=== PATIENT | female | born 1945 ===

== ENCOUNTER 2021-03-11 09:02 | Emergency (ER) | payer OTHER, MEDICAID ==
[~2021-03-11] VITALS: Ht 162.6 cm; Wt 113.4 kg
[2021-03-11] MEDS ORDERED: ONDANSETRON HCL 4 MG/2 ML VIAL ONE (09:36)
[2021-03-11] MEDS ORDERED: ONDANSETRON HCL 4 MG/2 ML VIAL IV ONE (09:45)
[2021-03-11 10:16] LABS: Albumin 2.8 g/dL (3.4-5.0); Calcium 8.1 mg/dL (8.5-10.1); Magnesium 2.4 mg/dL (1.6-2.6); Potassium 3.5 mmol/L (3.5-5.1)
[2021-03-11 10:18] LABS: Basophils # (auto) 0.1 10 ^3/uL (0-0.2); Eosinophils # (auto) 0.3 10 ^3/uL (0-0.8); Hematocrit 33.5 % (36.0-46.0); Lymphocytes # (auto) 1.4 10 ^3/uL (0.4-5.4)
[2021-03-11 10:20] LABS: Basophils % (auto) 0.8 % (0.0-2.0); Eosinophils % (auto) 2.9 % (0.0-7.0); Hemoglobin 10.9 g/dL (12.2-16.2); Lymphocytes % (auto) 11.7 % (10.0-50.0); Mean Corpuscular Hemoglobin 24.2 pg (28.0-32.0); Mean Corpuscular Hgb Conc. 32.5 g/dL (32.0-36.0); Mean Corpuscular Volume 74.7 fL (80.0-100.0); Monocytes # (auto) 1.3 10 ^3/uL (0-1.3); Monocytes % (auto) 10.9 % (0.0-12.0); Neutrophils # (auto) 8.7 10 ^3/uL (1.6-8.6); Neutrophils % (auto) 73.7 % (37.0-80.0); Nucleated Red Blood Cells % 0.1 %; Red Blood Cells 4.48 10^6/uL (4.0-5.20); Red Cell Distribution Width 15.9 % (11.8-14.3); White Blood Cell 11.7 10^3/uL (4.4-10.8)
[2021-03-11 10:24] LABS: Bilirubin, Total 0.4 mg/dL (0.2-1.0); Total Protein 6.9 g/dL (6.4-8.2)
[2021-03-11 10:53] LABS: BUN/Creatinine Ratio 16.9
[2021-03-11] MEDS ORDERED: SODIUM CHLORIDE 0.9% 1,000 ML IV ONE (11:45)
[2021-03-11] MEDS ORDERED: SODIUM CHLORIDE 0.9% 500 ML IVB ONE (11:45)
[2021-03-11 12:52] LABS: Urine Bacteria MANY /hpf (None Seen); Urine Blood Negative /uL (Negative); Urine Specific Gravity 1.008 (1.001-1.035); Urine WBC 1 /hpf (0 - 5)
[2021-03-11] MEDS ORDERED: cefTRIAXone 1GM/50ML D5W 50 ML IV ONE (13:30)
[2021-03-11] MEDS ORDERED: metroNIDAZOLE 500MG/100ML 100 ML IV ONE (13:30)
[2021-03-11 15:00] VITALS: BP 112/49
[2021-03-11] MEDS ORDERED: LACTCAP35 PO (22:42)
[2021-03-11] MEDS ORDERED: METR500T14 PO (22:42)
[2021-03-11] MEDS ORDERED: CEFD300C2 PO (22:42)
[2021-03-14] MEDS ORDERED: ZINC220T6 PO (11:00)
[2021-03-14] MEDS ORDERED: ASCO10003 PO (11:00)
[2021-03-14] MEDS ORDERED: CHOL20007 PO (11:00)
== END 2021-03-11 15:58 | disposition home or self-care (01) ==
LOC: ER 09:02
DX: N39.0 Urinary tract infection, site not specified (principal); R53.1 Weakness; K52.1 Toxic gastroenteritis and colitis; E66.01 Morbid (severe) obesity due to excess calories; E43 Unspecified severe protein-calorie malnutrition; I10 Essential (primary) hypertension; T50.905A Adverse effect of unspecified drugs, medicaments and biological substances, initial encounter; Z68.41 Body mass index [BMI] 40.0-44.9, adult; Y92.89 Other specified places as the place of occurrence of the external cause
CPT/HCPCS: 36415; 71045; 80053; 81001; 83690; 83735; 84484; 85025; 93005; 96361; 96365; 96368; 96375; 99285; J0696; J2405; J3490; J7030; J7040

== ENCOUNTER 2021-03-12 07:35 | Inpatient (IN) | payer OTHER, MEDICAID ==
[~2021-03-12] VITALS: Ht 157.5 cm; Wt 113.0 kg
[~2021-03-12 07:35] MED LIST: CEFD300C2 PO; LACTCAP35 PO; METR500T14 PO
[2021-03-12 11:07] LABS: Albumin 2.5 g/dL (3.4-5.0); Calcium 7.9 mg/dL (8.5-10.1); Potassium 3.6 mmol/L (3.5-5.1)
[2021-03-12 11:10] LABS: Basophils # (auto) 0.1 10 ^3/uL (0-0.2); Eosinophils # (auto) 0.5 10 ^3/uL (0-0.8); Eosinophils % (auto) 4.3 % (0.0-7.0); Mean Corpuscular Hemoglobin 23.9 pg (28.0-32.0); Mean Corpuscular Volume 75.2 fL (80.0-100.0); Monocytes # (auto) 1.3 10 ^3/uL (0-1.3)
[2021-03-12 11:13] LABS: BUN/Creatinine Ratio 21.5; Bilirubin, Total 0.4 mg/dL (0.2-1.0); Total Protein 6.5 g/dL (6.4-8.2)
[2021-03-12 11:15] LABS: Basophils % (auto) 0.7 % (0.0-2.0); Hematocrit 31.7 % (36.0-46.0); Hemoglobin 10.1 g/dL (12.2-16.2); Lymphocytes % (auto) 16.1 % (10.0-50.0); Mean Corpuscular Hgb Conc. 31.7 g/dL (32.0-36.0); Monocytes % (auto) 10.8 % (0.0-12.0); Neutrophils # (auto) 8.4 10 ^3/uL (1.6-8.6); Neutrophils % (auto) 68.1 % (37.0-80.0); Nucleated Red Blood Cells % 0.1 %; Red Blood Cells 4.22 10^6/uL (4.0-5.20); White Blood Cell 12.3 10^3/uL (4.4-10.8)
[2021-03-12] MEDS ORDERED: ASPirin 81 mg TAB PO ONE (12:00)
[2021-03-12] MEDS ORDERED: NITROGLYCERIN 0.4 MG SL TAB SL PRN ×2 (13:15→17:00)
[2021-03-12] MEDS ORDERED: MORPHINE SULFATE INJECTION 2 MG/ML SYRG IV PRN ×3 (13:15→17:00)
[2021-03-12 14:39] LABS: Urine Bacteria NONE SEEN /hpf (None Seen); Urine Blood Negative /uL (Negative); Urine Hyaline Cast FEW /lpf (0 - 2); Urine Specific Gravity 1.016 (1.001-1.035); Urine WBC 9 /hpf (0 - 5)
[2021-03-12] MEDS ORDERED: METOPROLOL SUCCINATE XL 50 MG TAB PO ONE (17:00)
[2021-03-12] MEDS ORDERED: DOCUSATE SOD 100 MG CAP PO PRN (17:00)
[2021-03-12] MEDS: InsuLIN REG 1unit/0.01ml Soln (100units/ml) SC SCH ×2 (17:00→22:00)
[2021-03-12] MEDS ORDERED: HYDROcodone-ACET 5/325MG TAB PO PRN (17:00)
[2021-03-12] MEDS ORDERED: cefTRIAXone 1GM/50ML D5W 50 ML IV ONE (17:00)
[2021-03-12] MEDS ORDERED: DOXYCYCLINE 100MG/250ML 250 ML IV ONE (17:00)
[2021-03-12] MEDS ORDERED: ALUM & MAG HYDROX-SIMETH LIQ(MAALOX) 30 ML PO PRN (17:00)
[2021-03-12] MEDS ORDERED: DEXTROSE (50%) 50ML SYRG IV PRN (17:00)
[2021-03-12] MEDS ORDERED: ACETAMINOPHEN 325 MG TAB PO PRN (17:00)
[2021-03-12] MEDS ORDERED: ONDANSETRON HCL 4 MG/2 ML VIAL IV PRN (17:00)
[2021-03-12] MEDS ORDERED: LORazepam 0.5 MG TAB PO PRN (17:00)
[2021-03-12 19:08] LABS: Cholesterol 108 mg/dL (< 200)
[2021-03-12 19:10] LABS: HDL Cholesterol 24 mg/dL (40-59); LDL Cholesterol 68 mg/dL (< 100); Triglycerides 113 mg/dL (< 150)
[2021-03-12 20:54] LABS: Cholesterol 119 mg/dL (< 200)
[2021-03-12 20:57] LABS: HDL Cholesterol 22 mg/dL (40-59); LDL Cholesterol 73 mg/dL (< 100); Triglycerides 187 mg/dL (< 150)
[2021-03-13] MEDS: SODIUM CHLORIDE 0.9% 1,000 ML IV SCH ×3 (00:47→21:25)
[2021-03-13] MEDS: APIXABAN 5 MG TAB PO SCH ×3 (00:57→21:24)
[2021-03-13] MEDS: ACCU-CHEK COMFORT CURVE STRIP VI SCH ×4 (00:57→11:17)
[2021-03-13] MEDS: FUROSEMIDE 20 MG/2 ML VIAL IV SCH ×2 (00:57→06:00)
[2021-03-13] MEDS: ATORVASTATIN 20 MG TAB PO SCH ×2 (00:58→21:24)
[2021-03-13] MEDS: POTASSIUM CHL 20 Meq TABLET PO SCH ×2 (00:58→09:36)
[2021-03-13] MEDS: GABAPENTIN 300 MG CAP PO SCH ×3 (00:58→14:15)
[2021-03-13] MEDS: InsuLIN REG 1unit/0.01ml Soln (100units/ml) SC SCH ×3 (06:17→11:17)
[2021-03-13 08:27] LABS: Basophils # (auto) 0.1 10 ^3/uL (0-0.2); Hemoglobin 10.1 g/dL (12.2-16.2); Lymphocytes # (auto) 1.5 10 ^3/uL (0.4-5.4); Mean Corpuscular Hemoglobin 23.1 pg (28.0-32.0); Red Blood Cells 4.36 10^6/uL (4.0-5.20)
[2021-03-13 08:28] LABS: Basophils % (auto) 0.8 % (0.0-2.0); Eosinophils % (auto) 9.2 % (0.0-7.0); Hematocrit 32.1 % (36.0-46.0); Lymphocytes % (auto) 13.6 % (10.0-50.0); Mean Corpuscular Hgb Conc. 31.3 g/dL (32.0-36.0); Monocytes # (auto) 0.9 10 ^3/uL (0-1.3); Monocytes % (auto) 7.7 % (0.0-12.0); Neutrophils # (auto) 7.7 10 ^3/uL (1.6-8.6); Neutrophils % (auto) 68.7 % (37.0-80.0); Red Cell Distribution Width 15.9 % (11.8-14.3); White Blood Cell 11.2 10^3/uL (4.4-10.8)
[2021-03-13 08:29] LABS: Mean Corpuscular Volume 73.7 fL (80.0-100.0)
[2021-03-13 08:41] LABS: INR 1.06 (0.9-1.15); Partial Thromboplastin Time 33.2 sec (23.6-33.0)
[2021-03-13] MEDS: DOXYCYCLINE 100MG/250ML 250 ML IV SCH ×2 (08:53→17:00)
[2021-03-13] MEDS ORDERED: cefTRIAXone 1GM/50ML D5W 50 ML IV SCH (09:00)
[2021-03-13 09:22] LABS: Albumin 2.5 g/dL (3.4-5.0); Calcium 7.9 mg/dL (8.5-10.1); Magnesium 2.2 mg/dL (1.6-2.6); Uric Acid 5.4 mg/dL (2.6-6.0)
[2021-03-13 09:26] LABS: BUN/Creatinine Ratio 27.5; Bilirubin, Total 0.4 mg/dL (0.2-1.0); Phosphorus 3.1 mg/dL (2.5-4.90); Total Protein 5.9 g/dL (6.4-8.2)
[2021-03-13] MEDS ORDERED: BENAZEPRIL HCL 10 MG TAB PO SCH (10:00)
[2021-03-13] MEDS ORDERED: ENOXAPARIN SOD 40 MG/0.4 ML SYRINGE SC SCH (10:00)
[2021-03-13] MEDS ORDERED: ASPirin 81 mg TAB PO SCH (10:00)
[2021-03-13] MEDS ORDERED: METOPROLOL SUCCINATE XL 50 MG TAB PO SCH (10:00)
[2021-03-13 20:00] VITALS: BP 133/91
[2021-03-13] MEDS: BUDESONIDE (INHALATION) 180 MCG IH IN SCH (20:58)
[2021-03-13] MEDS: ALBUTEROL SULF HFA 90MCG INH 200DOSE IN PRN (20:58)
[2021-03-13 22:00] VITALS: BP 133/91
[2021-03-14 00:25] VITALS: BP 99/63
[2021-03-14] MEDS ORDERED: METF-929 PO (01:03)
[2021-03-14] MEDS ORDERED: FEXO-90 PO (01:03)
[2021-03-14] MEDS ORDERED: TRAZ50TA2 PO (01:03)
[2021-03-14] MEDS ORDERED: GABA300C10 PO (01:03)
[2021-03-14] MEDS ORDERED: AMLO-489 PO (01:03)
[2021-03-14] MEDS ORDERED: METO-158 PO (01:03)
[2021-03-14] MEDS ORDERED: APIX5TAB PO (01:03)
[2021-03-14] MEDS: DOXYCYCLINE 100MG/250ML 250 ML IV SCH (04:01)
[2021-03-14 05:00] VITALS: BP 134/62
[2021-03-14 05:01] LABS: Amphetamine Screen, Urine NEGATIVE (NEGATIVE); Barbiturate Scree,Urine NEGATIVE (NEGATIVE); Benzodiazephine Screen, Urine NEGATIVE (NEGATIVE); Cannabinoid Screen, Urine NEGATIVE (NEGATIVE); Cocaine Screen, Urine NEGATIVE (NEGATIVE); Opiate Scree,Urine NEGATIVE (NEGATIVE); Phencyclidine Screen, Urine NEGATIVE (NEGATIVE)
[2021-03-14 07:00] LABS: Eosinophils # (auto) 0.9 10 ^3/uL (0-0.8); Hemoglobin 10.2 g/dL (12.2-16.2)
[2021-03-14 07:02] LABS: Basophils # (auto) 0 10 ^3/uL (0-0.2); Eosinophils % (auto) 8.7 % (0.0-7.0); Hematocrit 31.6 % (36.0-46.0); Lymphocytes # (auto) 2.4 10 ^3/uL (0.4-5.4); Lymphocytes % (auto) 24.4 % (10.0-50.0); Mean Corpuscular Hgb Conc. 32.3 g/dL (32.0-36.0); Mean Corpuscular Volume 74.5 fL (80.0-100.0); Monocytes # (auto) 0.9 10 ^3/uL (0-1.3); Monocytes % (auto) 9.2 % (0.0-12.0); Neutrophils # (auto) 5.6 10 ^3/uL (1.6-8.6); Neutrophils % (auto) 57.7 % (37.0-80.0); Red Blood Cells 4.24 10^6/uL (4.0-5.20); Red Cell Distribution Width 15.6 % (11.8-14.3); White Blood Cell 9.8 10^3/uL (4.4-10.8)
[2021-03-14] MEDS: ALBUTEROL SULF HFA 90MCG INH 200DOSE IN PRN (07:20)
[2021-03-14] MEDS: BUDESONIDE (INHALATION) 180 MCG IH IN SCH (07:20)
[2021-03-14 09:00] VITALS: BP 151/71
[2021-03-14] MEDS ORDERED: ASCORBIC ACID 1,000 MG TAB PO SCH (10:00)
[2021-03-14] MEDS ORDERED: ZINC SULFATE 220mg CAP or TAB PO SCH (10:00)
[2021-03-14] MEDS ORDERED: PANTOPRAZOLE 40 MG TAB PO SCH (10:00)
[2021-03-14] MEDS ORDERED: IVERMECTIN 3 MG TAB PO SCH (10:00)
[2021-03-14] MEDS ORDERED: CHOLECALCIFEROL (VITD3) 2,000 UNIT CAP/TAB PO SCH (10:00)
[2021-03-14] MEDS ORDERED: DexAMETHasone SOD PHOS 10MG/1ML VIAL INJ IV SCH (10:00)
[2021-03-14 10:57] VITALS: BP 151/71
[2021-03-14] MEDS ORDERED: ASCO10003 PO (11:00)
[2021-03-14] MEDS ORDERED: ZINC220T6 PO (11:00)
[2021-03-14] MEDS ORDERED: CHOL20007 PO (11:00)
[2021-03-14] MEDS: APIXABAN 5 MG TAB PO SCH (11:15)
== END 2021-03-14 12:45 | disposition home or self-care (01) | DRG 177 ==
LOC: ER 07:35 → TELE 13:05 → TELE-EAST 03-13 18:48
PROVIDERS: ADMIT Hospitalist; ATTEND Internal Medicine
DX: U07.1 COVID-19 (principal); J12.82 Pneumonia due to coronavirus disease 2019; I48.19 Other persistent atrial fibrillation; I50.32 Chronic diastolic (congestive) heart failure; R65.10 Systemic inflammatory response syndrome (SIRS) of non-infectious origin without acute organ dysfunction; Z68.42 Body mass index [BMI] 45.0-49.9, adult; I95.2 Hypotension due to drugs; D63.8 Anemia in other chronic diseases classified elsewhere; E11.9 Type 2 diabetes mellitus without complications; E55.9 Vitamin D deficiency, unspecified; E66.01 Morbid (severe) obesity due to excess calories; E78.5 Hyperlipidemia, unspecified; M19.90 Unspecified osteoarthritis, unspecified site; E88.09 Other disorders of plasma-protein metabolism, not elsewhere classified; T50.905A Adverse effect of unspecified drugs, medicaments and biological substances, initial encounter; I11.0 Hypertensive heart disease with heart failure; Y92.89 Other specified places as the place of occurrence of the external cause; Z79.01 Long term (current) use of anticoagulants; Z79.84 Long term (current) use of oral hypoglycemic drugs; Z86.73 Personal history of transient ischemic attack (TIA), and cerebral infarction without residual deficits; Z83.3 Family history of diabetes mellitus; Z82.49 Family history of ischemic heart disease and other diseases of the circulatory system; Z79.899 Other long term (current) drug therapy
CPT/HCPCS: 36415; 70450; 71045; 80053; 80061; 80307; 81001; 82306; 82728; 82962; 83036; 83605; 83615; 83735; 83880; 84100; 84443; 84484; 84550; 85025; 85379; 85610; 85730; 86141; 87040; 87086; 87088; 87186; 87426; 87804; 93005; 93306; 93886; 94640; 96365; 97163; 99291; G0378; J0696; J1100; J3490